=== PATIENT | female | born 1985 | race Caucasian/White ===

== ENCOUNTER 2016-07-06 00:48 | Emergency (ER) | payer OTHER ==
--- NOTE | 2016-07-06 02:03 | ED CLINICAL REPORT ---
Clinical Report - Physicians/Mid Levels [facility] [address] [place] [address] 07/06/2016 0:51 Patient: ROGER LISA Time Seen: 00:57. Arrived- By private vehicle. Historian- patient. HISTORY OF PRESENT ILLNESS Chief Complaint: EARACHE. This started about 9 days ago and is still present. It was gradual in onset and has been constant and waxing/waning. Location- right ear. The pain is described as severe. The patient has had moderate right ear pain (for several hours). She has had moderate nasal congestion (for 9 days). She has had sinus pressure (for 9 days). REVIEW OF SYSTEMS All systems otherwise negative, except as recorded above. PAST HISTORY Medications: None. Allergies: No Known Drug Allergy. SOCIAL HISTORY Light tobacco smoker (cigarette)- less than 1/2 a pack per day. Regular alcohol use; consumes two beers a day. History of weekly drug use: marijuana. FAMILY HISTORY No significant family medical history. ADDITIONAL NOTES The nursing notes have been reviewed. PHYSICAL EXAM Vital Signs: 07/06/2016 00:57 BP: 122/74. HR: 80. RR: 16. O2 saturation: 100%. Temp: 98.6 F. Have been reviewed. Appearance: Alert. Ear (left): Left ear normal. Left tympanic membrane normal. Throat: Pharynx normal. Ear (right): There is erythema and dullness of the tympanic membrane, fluid behind the tympanic membrane and loss of tympanic membrane landmarks. Nose: Tenderness present to percussion/palpation of the sinuses: mild right and left maxillary tenderness. Neck: Neck supple. CVS: Normal heart rate and rhythm. Heart sounds normal. Respiratory: No respiratory distress. Breath sounds normal. Abdomen: Soft and nontender. Back: Normal inspection. Skin: Skin warm and dry. Normal skin color. Normal skin turgor. Extremities: No lower extremity edema. PROGRESS AND PROCEDURES Course of Care: Patient is stable. Patient/family counseled. Old medical records ordered. Old records unavailable. Disposition: Discharged. Condition: stable. CLINICAL IMPRESSION Acute right otitis media. Acute maxillary sinusitis INSTRUCTIONS Do not smoke- benefits of smoking cessation discussed (>3 -10 minutes). Seek medical help to quit smoking. Warnings: GENERAL WARNINGS: Return or contact your physician immediately if your condition worsens or changes unexpectedly, if not improving as expected, or if other problems arise. Prescription Medications: Zithromax 250 mg tablets: take 2 orally today, followed by 1 daily for the next 4 days. No refills. Substitution is permissible. Understanding of the discharge instructions verbalized by patient. (Electronically signed by Ray Gomez MD 07/06/2016 2:16)
--- NOTE | 2016-07-06 02:03 | ED NURSING NOTES ---
Clinical Report - Nurses [facility] [address] [place] [address] 07/06/2016 0:51 Patient: ROGER LISA TRIAGE Triage time 0058. Acuity: LEVEL 3. Chief Complaint: RIGHT EAR PAIN and SINUS CONGESTION. --01:02 Pete Ibarra R.N. 00:57 07/06/16. BP: 122/74. HR: 80. RR: 16. O2 saturation: 100%. Temp: 98.6 F. Pain level now 01/20. --01:02 Pete Ibarra R.N. Weight: 57.6 kg stated. Height/Length: 66 inches Per Patient. BMI: 20.5. --00:58 Pete Ibarra R.N. Medications None. --01:00 Pete Ibarra R.N. Allergies No Known Drug Allergy. --01:00 Pete Ibarra R.N. History Arrived by private vehicle. Historian: patient. Accompanied by friend. Onset. (about 9 days). ( ear pain only the last 3 hours). She has had a sore throat. No ear drainage. 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 (viviana ear drops). SOCIAL HX: Light tobacco smoker- less than 1/2 a pack per day. Alcohol use; consumes two beers a day. History of weekly drug use: marijuana. FALL RISK ASSESSMENT: Fall risk assessment completed. No fall risk identified. NUTRITIONAL RISK ASSESSMENT: The nutritional risk assessment revealed no deficiencies. FUNCTIONAL ASSESSMENT: Functional assessment: no impairments noted. LEARNING NEEDS ASSESSMENT: The learning needs assessment revealed no barriers. SKIN INTEGRITY ASSESSMENT: Skin integrity risk assessment completed. No skin integrity risk identified. --01:02 Pete Ibarra R.N. PAST MEDICAL HX: ( pt states she feels she has had a cold this whole time and only came in because her ear started hurting). --01:03 Pete Ibarra R.N. Interventions ID band on patient. --01:02 Pete Ibarra R.N. PHYSICAL ASSESSMENT Ambulatory to room. GENERAL / NEURO / PSYCH: Alert. Appears in no acute distress. HEENT: No facial asymmetry noted. Pupils equal, round and reactive to light. EOM intact. Nares within normal limits. RESPIRATORY: Respirations not labored. CVS: Capillary refill less than 2 seconds. SKIN: Skin is warm and dry. --01:02 Pete Ibarra R.N. NURSING PROGRESS NOTES Patient gowned. Head of bed elevated. Reassurance given. Patient identifiers checked. Call light placed in reach. Bed placed in lowest position. Brakes of bed on. --01:03 Pete Ibarra R.N. DISPOSITION / DISCHARGE Departure time: 0. Condition at departure: improved. No learning barriers present. Discharge instructions provided and reviewed with accounting manager assistant controller and the patient. Reviewed warnings. Reviewed medication(s). Treatments reviewed. Reviewed referrals. Patient and accounting manager assistant controller verbalized understanding. Written instructions provided in German. The patient was discharged by the physician. She was discharged home and accompanied by accounting manager assistant controller. She left the Emergency Department ambulatory and via private vehicle. Sole Edge Inker Machine driving. --02:12 Pete Ibarra R.N. 02:10 07/06/16. BP: 110/75. HR: 66. RR: 16. O2 saturation: 100%. Temp: 98 F. Pain level now 0/10. --02:12 Pete Ibarra R.N. Locked/Released at 07/06/2016 2:12 by Pete Ibarra R.N.
--- NOTE | 2016-07-06 02:03 | ED NURSING NOTES ---
Clinical Report - Nurses [facility] [address] [place] [address] 07/06/2016 0:51 Patient: ROGER LISA TRIAGE Triage time 0058. Acuity: LEVEL 3. Chief Complaint: RIGHT EAR PAIN and SINUS CONGESTION. --01:02 Pete Ibarra R.N. 00:57 07/06/16. BP: 122/74. HR: 80. RR: 16. O2 saturation: 100%. Temp: 98.6 F. Pain level now 01/20. --01:02 Pete Ibarra R.N. Weight: 57.6 kg stated. Height/Length: 66 inches Per Patient. BMI: 20.5. --00:58 Pete Ibarra R.N. Medications None. --01:00 Pete Ibarra R.N. Allergies No Known Drug Allergy. --01:00 Pete Ibarra R.N. History Arrived by private vehicle. Historian: patient. Accompanied by friend. Onset. (about 9 days). ( ear pain only the last 3 hours). She has had a sore throat. No ear drainage. 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 (viviana ear drops). SOCIAL HX: Light tobacco smoker- less than 1/2 a pack per day. Alcohol use; consumes two beers a day. History of weekly drug use: marijuana. FALL RISK ASSESSMENT: Fall risk assessment completed. No fall risk identified. NUTRITIONAL RISK ASSESSMENT: The nutritional risk assessment revealed no deficiencies. FUNCTIONAL ASSESSMENT: Functional assessment: no impairments noted. LEARNING NEEDS ASSESSMENT: The learning needs assessment revealed no barriers. SKIN INTEGRITY ASSESSMENT: Skin integrity risk assessment completed. No skin integrity risk identified. --01:02 Pete Ibarra R.N. PAST MEDICAL HX: ( pt states she feels she has had a cold this whole time and only came in because her ear started hurting). --01:03 Pete Ibarra R.N. Interventions ID band on patient. --01:02 Pete Ibarra R.N. PHYSICAL ASSESSMENT Ambulatory to room. GENERAL / NEURO / PSYCH: Alert. Appears in no acute distress. HEENT: No facial asymmetry noted. Pupils equal, round and reactive to light. EOM intact. Nares within normal limits. RESPIRATORY: Respirations not labored. CVS: Capillary refill less than 2 seconds. SKIN: Skin is warm and dry. --01:02 Pete Ibarra R.N. NURSING PROGRESS NOTES Patient gowned. Head of bed elevated. Reassurance given. Patient identifiers checked. Call light placed in reach. Bed placed in lowest position. Brakes of bed on. --01:03 Pete Ibarra R.N. DISPOSITION / DISCHARGE Departure time: 0. Condition at departure: improved. No learning barriers present. Discharge instructions provided and reviewed with chief digital media officer and the patient. Reviewed warnings. Reviewed medication(s). Treatments reviewed. Reviewed referrals. Patient and chief digital media officer verbalized understanding. Written instructions provided in Bulgarian. The patient was discharged by the physician. She was discharged home and accompanied by chief digital media officer. She left the Emergency Department ambulatory and via private vehicle. Assistant Store Manager driving. --02:12 Pete Ibarra R.N. 02:10 07/06/16. BP: 110/75. HR: 66. RR: 16. O2 saturation: 100%. Temp: 98 F. Pain level now 0/10. --02:12 Pete Ibarra R.N. Locked/Released at 07/06/2016 2:12 by Pete Ibarra R.N.
--- NOTE | 2016-07-06 02:03 | ED CLINICAL REPORT ---
Clinical Report - Physicians/Mid Levels [facility] [address] [place] [address] 07/06/2016 0:51 Patient: ROGER LISA Time Seen: 00:57. Arrived- By private vehicle. Historian- patient. HISTORY OF PRESENT ILLNESS Chief Complaint: EARACHE. This started about 9 days ago and is still present. It was gradual in onset and has been constant and waxing/waning. Location- right ear. The pain is described as severe. The patient has had moderate right ear pain (for several hours). She has had moderate nasal congestion (for 9 days). She has had sinus pressure (for 9 days). REVIEW OF SYSTEMS All systems otherwise negative, except as recorded above. PAST HISTORY Medications: None. Allergies: No Known Drug Allergy. SOCIAL HISTORY Light tobacco smoker (cigarette)- less than 1/2 a pack per day. Regular alcohol use; consumes two beers a day. History of weekly drug use: marijuana. FAMILY HISTORY No significant family medical history. ADDITIONAL NOTES The nursing notes have been reviewed. PHYSICAL EXAM Vital Signs: 07/06/2016 00:57 BP: 122/74. HR: 80. RR: 16. O2 saturation: 100%. Temp: 98.6 F. Have been reviewed. Appearance: Alert. Ear (left): Left ear normal. Left tympanic membrane normal. Throat: Pharynx normal. Ear (right): There is erythema and dullness of the tympanic membrane, fluid behind the tympanic membrane and loss of tympanic membrane landmarks. Nose: Tenderness present to percussion/palpation of the sinuses: mild right and left maxillary tenderness. Neck: Neck supple. CVS: Normal heart rate and rhythm. Heart sounds normal. Respiratory: No respiratory distress. Breath sounds normal. Abdomen: Soft and nontender. Back: Normal inspection. Skin: Skin warm and dry. Normal skin color. Normal skin turgor. Extremities: No lower extremity edema. PROGRESS AND PROCEDURES Course of Care: Patient is stable. Patient/family counseled. Old medical records ordered. Old records unavailable. Disposition: Discharged. Condition: stable. CLINICAL IMPRESSION Acute right otitis media. Acute maxillary sinusitis INSTRUCTIONS Do not smoke- benefits of smoking cessation discussed (>3 -10 minutes). Seek medical help to quit smoking. Warnings: GENERAL WARNINGS: Return or contact your physician immediately if your condition worsens or changes unexpectedly, if not improving as expected, or if other problems arise. Prescription Medications: Zithromax 250 mg tablets: take 2 orally today, followed by 1 daily for the next 4 days. No refills. Substitution is permissible. Understanding of the discharge instructions verbalized by patient. (Electronically signed by Ray Gomez MD 07/06/2016 2:16)
--- NOTE | 2016-07-06 02:17 | ED MED RECONCILIATION SUMMARY ---
Patient: ROGER LISA Medication Reconciliation Report [facility] VisitID: [id number] [address] [place] [address] 31y, F Registration Date/Time: 07/06/2016 Weight: 57.6 kg Height/Length: 66 in. BMI: 20.5 ALLERGIES: No Known Drug Allergy The patient's Home Medications are listed below: NONE. The source(s) of the original Home Medication information: Not obtained. The following Medications were given to the patient in the Emergency Department: None. The following Medications were prescribed to the patient: Zithromax 250 mg tablets: take 2 orally today, followed by 1 daily for the next 4 days. No refills. Substitution is permissible. -- Ray Gomez MD
--- NOTE | 2016-07-06 02:17 | ED DISCHARGE INSTRUCTIONS ---
Patient: ROGER LISA General Instructions [facility] VisitID: [id number] [place] [address] 31y, F Registration Date/Time: 07/06/2016 Acute right otitis media. Acute maxillary sinusitis INSTRUCTIONS Do not smoke- benefits of smoking cessation discussed (>3 -10 minutes). Seek medical help to quit smoking. Warnings: GENERAL WARNINGS: Return or contact your physician immediately if your condition worsens or changes unexpectedly, if not improving as expected, or if other problems arise. Prescription Medications: Zithromax 250 mg tablets: take 2 orally today, followed by 1 daily for the next 4 days. No refills. Substitution is permissible. Understanding of the discharge instructions verbalized by patient. ADDITIONAL INFORMATION Middle Ear Infection (Adult) You have an infection of the middle ear (the space behind the eardrum). It can occur as a result of the common cold. This is because congestion can block the internal passage (eustachian tube) that drains fluid from the middle ear. When the middle ear fills with fluid, bacteria can grow there and cause an infection. Oral antibiotics are used to treat this illness, not ear drops. Symptoms usually start to improve within 1-2 days of treatment. Home Care: Finish all of the antibiotic medicine prescribed, even though you may feel better after the first few days. You may use acetaminophen (Tylenol) or ibuprofen (Motrin, Advil) to control pain, unless something else was prescribed. [NOTE: If you have chronic liver or kidney disease or have ever had a stomach ulcer or GI bleeding, talk with your doctor before using these medicines.] (Do not give aspirin to anyone under 18 years of age who is ill with a fever. It may cause severe liver damage.) Follow Up with your doctor or this facility in two weeks if all symptoms have not cleared, or if hearing does not return to normal within one month. Get Prompt Medical Attention if any of the following occur: Ear pain gets worse or does not improve after three days of treatment Unusual drowsiness or confusion Neck pain, stiff neck or headache Fluid or blood draining from the ear canal Fever of 100.4F (38C) or higher after 3 days of antibiotics, or as directed by your healthcare provider Convulsion (seizure) Sinusitis [Abx Tx] The sinuses are air-filled spaces within the bones of the face. They connect to the inside of the nose. Sinusitis is an inflammation of the tissue lining the sinus cavity. Sinus inflammation can occur during a cold or hay-fever (allergies to pollens and other particles in the air) and cause symptoms of sinus congestion and fullness. A sinus infection causes fever, headache and facial pain. There is usually green or yellow drainage from the nose or into the back of the throat (post-nasal drip). Antibiotics are prescribed to treat this condition. Home Care: Drink plenty of water, hot tea, and other liquids to stay well hydrated. This thins the mucus and promotes sinus drainage. Apply heat to the painful areas of the face. Use a towel soaked in hot water. Or, security installation sales technician the shower and direct the hot spray onto your face. This is a good way to inhale warm water vapor and get heat on your face at the same time. (Cover your mouth and nose with your hands so you can still breathe as you do this.) Use a vaporizer with products such as [employer] (contains menthol) at night. Suck on peppermint, menthol or eucalyptus hard candies during the day. An expectorant containing guaifenesin (such as Robitussin), helps to thin the mucus and promote drainage from the sinuses. Llvd-akt-elarelk decongestants may be used unless a similar medicine was prescribed. Nasal sprays work the fastest. Use one that contains phenylephrine (Evelio-synephrine, Sinex and others) or oxymetazoline (Afrin). First blow the nose gently to remove mucus, then apply the drops. Do not use these medicines more often than directed on the label or for more than three days or symptoms may worsen. You may also use tablets containing pseudoephedrine (Sudafed). Many sinus remedies combine ingredients, which may increase side effects. Read the labels or ask the pharmacist for help. NOTE: Persons with high blood pressure should not use decongestants. They can raise blood pressure. Antihistamines are useful if allergies are a cause of your sinusitis. The mildest one is chlorpheniramine (available without a prescription). The dose for adults is 8-12mg three times a day. [NOTE: Do not use chlorpheniramine if you have glaucoma or if you are a man with trouble urinating due to an enlarged prostate.] Claritin (loratidine) is an antihistamine that causes less drowsiness and is a good alternative for daytime use. Do not use nasal rinses or irrigation during an acute sinus infection, unless advised by your doctor. Rinsing may spread the infection to other sinuses. You may use acetaminophen (Tylenol) or ibuprofen (Motrin, Advil) to control pain, unless another pain medicine was prescribed. [ NOTE: If you have chronic liver or kidney disease or ever had a stomach ulcer, talk with your doctor before using these medicines.] (Aspirin should never be used in anyone under 18 years of age who is ill with a fever. It may cause severe liver damage.) Finish the full course, even if you are feeling better after a few days. Follow Up with your doctor or this facility in one week or as instructed by our staff if not improving. Get Prompt Medical Attention if any of the following occur: Facial pain or headache becomes more severe Stiff neck Unusual drowsiness or confusion, or not acting like your normal self Swelling of the forehead or eyelids Vision problems including blurred or double vision Fever of 100.4F (38C) or higher, or as directed by your healthcare provider Seizure How To Quit Smoking Smoking is one of the hardest habits to break. About half of all those who have ever smoked have been able to quit, and most of those (about 70%) who still smoke want to quit. Here are some of the best ways to stop smoking. Keep Trying: It takes most smokers about 8 tries before they are finally able to fully quit. So, the more often you try and fail, the better your chance of quitting the next time! So, don't give up! Go Cold [place]: Most ex-smokers quit cold turkey. Trying to cut back gradually doesn't seem to work as well, perhaps because it continues the smoking habit. Also, it is possible to fool yourself by inhaling more while smoking fewer cigarettes. This results in the same amount of nicotine in your body! Get Support: Support programs can make an important difference, especially for the heavy smoker. These groups offer lectures, methods to change your behavior and peer support. Call the free national Quitline for more information. 062-UUTR-HAU (056-476-3166). Low-cost or free programs are offered by many hospitals, local chapters of the [place] [employer] (277-709-0248) and the [place] [employer] (798-299-9342). Support at home is important too. Non-smokers can help by offering praise and encouragement. If the smoker fails to quit, encourage them to try again! Bcak-Ljs-Fxcpnsn Medicines: For those who can't quit on their own, Nicotine Replacement Therapy (NRT) may make quitting much easier. Certain aids such as the nicotine patch, gum and lozenge are available without a prescription. However, it is best to use these under the guidance of your doctor. The skin patch provides a steady supply of nicotine to the body. Nicotine gum and lozenge gives temporary bursts of low levels of nicotine. Both methods take the edge off the craving for cigarettes. WARNING: If you feel symptoms of nicotine overdose, such as nausea, vomiting, dizziness, weakness, or fast heartbeat, stop using these and see your doctor. Prescription Medicines: After evaluating your smoking patterns and prior attempts at quitting, your doctor may offer a prescription medicine such as bupropion (Zyban, Wellbutrin), varenicline (Chantix, Champix), a niocotine inhaler or nasal spray. Each has its unique advantage and side effects which your doctor can review with you. Health Benefits Of Quitting: The benefits of quitting start right away and keep improving the longer you go without smokin minutes: blood pressure and pulse return to normal 8 hours: oxygen levels return to normal 2 days: ability to smell and taste begins to improve as damaged nerves start to regrow 2-3 weeks: circulation and lung function improves 1-9 months: decreased cough, congestion and shortness of breath; less tired 1 year: risk of heart attack decreases by half 5 years: risk of lung cancer decreases by half; risk of stroke becomes the same as a non-smoker For information about how to quit smoking, visit the following links: National [employer] , Clearing the Air, Quit Smoking Today - an online booklet. http://www.smokefree.gov/pubs/clearing_the_air.pdf Smokefree.gov http://smokefree.gov/ QuitNet http://www.quitnet.com/ Azithromycin Oral tablet What is this medicine? AZITHROMYCIN (az ith miles MYE sin) is a macrolide antibiotic. It is used to treat or prevent certain kinds of bacterial infections. It will not work for colds, flu, or other viral infections. How should I use this medicine? Take this medicine by mouth with a full glass of water. Follow the directions on the prescription label. The tablets can be taken with food or on an empty stomach. If the medicine upsets your stomach, take it with food. Take your medicine at regular intervals. Do not take your medicine more often than directed. Take all of your medicine as directed even if you think your are better. Do not skip doses or stop your medicine early. Talk to your cork sorter regarding the use of this medicine in children. Special care may be needed. What side effects may I notice from receiving this medicine? Side effects that you should report to your doctor or health medicare sales representative as soon as possible: allergic reactions like skin rash, itching or hives, swelling of the face, lips, or tongue confusion, nightmares or hallucinations dark urine difficulty breathing hearing loss irregular heartbeat or chest pain pain or difficulty passing urine redness, blistering, peeling or loosening of the skin, including inside the mouth white patches or sores in the mouth yellowing of the eyes or skin Side effects that usually do not require medical attention (report to your doctor or health medicare sales representative if they continue or are bothersome): diarrhea dizziness, drowsiness headache stomach upset or vomiting tooth discoloration vaginal irritation What may interact with this medicine? Do not take this medicine with any of the following medications: lincomycin This medicine may also interact with the following medications: amiodarone antacids cyclosporine digoxin magnesium nelfinavir phenytoin warfarin What if I miss a dose? If you miss a dose, take it as soon as you can. If it is almost time for your next dose, take only that dose. Do not take double or extra doses. Where should I keep my medicine? Keep out of the reach of children. Store at room temperature between 15 and 30 degrees C (59 and 86 degrees F). Throw away any unused medicine after the expiration date. What should I tell my health care provider before I take this medicine? They need to know if you have any of these conditions: kidney disease liver disease irregular heartbeat or heart disease an unusual or allergic reaction to azithromycin, erythromycin, other macrolide antibiotics, foods, dyes, or preservatives or trying to get breast-feeding What should I watch for while using this medicine? Tell your doctor or health medicare sales representative if your symptoms do not improve. Do not treat diarrhea with over the counter products. Contact your doctor if you have diarrhea that lasts more than 2 days or if it is severe and watery. This medicine can make you more sensitive to the sun. Keep out of the sun. If you cannot avoid being in the sun, wear protective clothing and use sunscreen. Do not use sun lamps or tanning beds/booths. You have been given the following additional information: Otitis Media, Abx Tx (Adult) Sinusitis, Abx Tx Smoking Cessation Azithromycin Oral tablet (Electronically signed by Ray Gomez MD 07/06/2016 2:16)
--- NOTE | 2016-07-06 02:17 | ED MED RECONCILIATION SUMMARY ---
Patient: ROGER LISA Medication Reconciliation Report [facility] VisitID: [id number] [address] [place] [address] 31y, F Registration Date/Time: 07/06/2016 Weight: 57.6 kg Height/Length: 66 in. BMI: 20.5 ALLERGIES: No Known Drug Allergy The patient's Home Medications are listed below: NONE. The source(s) of the original Home Medication information: Not obtained. The following Medications were given to the patient in the Emergency Department: None. The following Medications were prescribed to the patient: Zithromax 250 mg tablets: take 2 orally today, followed by 1 daily for the next 4 days. No refills. Substitution is permissible. -- Ray Gomez MD
--- NOTE | 2016-07-06 02:17 | ED DISCHARGE INSTRUCTIONS ---
Patient: ROGER LISA General Instructions [facility] VisitID: [id number] [place] [address] 31y, F Registration Date/Time: 07/06/2016 Acute right otitis media. Acute maxillary sinusitis INSTRUCTIONS Do not smoke- benefits of smoking cessation discussed (>3 -10 minutes). Seek medical help to quit smoking. Warnings: GENERAL WARNINGS: Return or contact your physician immediately if your condition worsens or changes unexpectedly, if not improving as expected, or if other problems arise. Prescription Medications: Zithromax 250 mg tablets: take 2 orally today, followed by 1 daily for the next 4 days. No refills. Substitution is permissible. Understanding of the discharge instructions verbalized by patient. ADDITIONAL INFORMATION Middle Ear Infection (Adult) You have an infection of the middle ear (the space behind the eardrum). It can occur as a result of the common cold. This is because congestion can block the internal passage (eustachian tube) that drains fluid from the middle ear. When the middle ear fills with fluid, bacteria can grow there and cause an infection. Oral antibiotics are used to treat this illness, not ear drops. Symptoms usually start to improve within 1-2 days of treatment. Home Care: Finish all of the antibiotic medicine prescribed, even though you may feel better after the first few days. You may use acetaminophen (Tylenol) or ibuprofen (Motrin, Advil) to control pain, unless something else was prescribed. [NOTE: If you have chronic liver or kidney disease or have ever had a stomach ulcer or GI bleeding, talk with your doctor before using these medicines.] (Do not give aspirin to anyone under 18 years of age who is ill with a fever. It may cause severe liver damage.) Follow Up with your doctor or this facility in two weeks if all symptoms have not cleared, or if hearing does not return to normal within one month. Get Prompt Medical Attention if any of the following occur: Ear pain gets worse or does not improve after three days of treatment Unusual drowsiness or confusion Neck pain, stiff neck or headache Fluid or blood draining from the ear canal Fever of 100.4F (38C) or higher after 3 days of antibiotics, or as directed by your healthcare provider Convulsion (seizure) Sinusitis [Abx Tx] The sinuses are air-filled spaces within the bones of the face. They connect to the inside of the nose. Sinusitis is an inflammation of the tissue lining the sinus cavity. Sinus inflammation can occur during a cold or hay-fever (allergies to pollens and other particles in the air) and cause symptoms of sinus congestion and fullness. A sinus infection causes fever, headache and facial pain. There is usually green or yellow drainage from the nose or into the back of the throat (post-nasal drip). Antibiotics are prescribed to treat this condition. Home Care: Drink plenty of water, hot tea, and other liquids to stay well hydrated. This thins the mucus and promotes sinus drainage. Apply heat to the painful areas of the face. Use a towel soaked in hot water. Or, senior accounting manager the shower and direct the hot spray onto your face. This is a good way to inhale warm water vapor and get heat on your face at the same time. (Cover your mouth and nose with your hands so you can still breathe as you do this.) Use a vaporizer with products such as [employer] (contains menthol) at night. Suck on peppermint, menthol or eucalyptus hard candies during the day. An expectorant containing guaifenesin (such as Robitussin), helps to thin the mucus and promote drainage from the sinuses. Actg-bzj-pmglmbh decongestants may be used unless a similar medicine was prescribed. Nasal sprays work the fastest. Use one that contains phenylephrine (Evelio-synephrine, Sinex and others) or oxymetazoline (Afrin). First blow the nose gently to remove mucus, then apply the drops. Do not use these medicines more often than directed on the label or for more than three days or symptoms may worsen. You may also use tablets containing pseudoephedrine (Sudafed). Many sinus remedies combine ingredients, which may increase side effects. Read the labels or ask the pharmacist for help. NOTE: Persons with high blood pressure should not use decongestants. They can raise blood pressure. Antihistamines are useful if allergies are a cause of your sinusitis. The mildest one is chlorpheniramine (available without a prescription). The dose for adults is 8-12mg three times a day. [NOTE: Do not use chlorpheniramine if you have glaucoma or if you are a man with trouble urinating due to an enlarged prostate.] Claritin (loratidine) is an antihistamine that causes less drowsiness and is a good alternative for daytime use. Do not use nasal rinses or irrigation during an acute sinus infection, unless advised by your doctor. Rinsing may spread the infection to other sinuses. You may use acetaminophen (Tylenol) or ibuprofen (Motrin, Advil) to control pain, unless another pain medicine was prescribed. [ NOTE: If you have chronic liver or kidney disease or ever had a stomach ulcer, talk with your doctor before using these medicines.] (Aspirin should never be used in anyone under 18 years of age who is ill with a fever. It may cause severe liver damage.) Finish the full course, even if you are feeling better after a few days. Follow Up with your doctor or this facility in one week or as instructed by our staff if not improving. Get Prompt Medical Attention if any of the following occur: Facial pain or headache becomes more severe Stiff neck Unusual drowsiness or confusion, or not acting like your normal self Swelling of the forehead or eyelids Vision problems including blurred or double vision Fever of 100.4F (38C) or higher, or as directed by your healthcare provider Seizure How To Quit Smoking Smoking is one of the hardest habits to break. About half of all those who have ever smoked have been able to quit, and most of those (about 70%) who still smoke want to quit. Here are some of the best ways to stop smoking. Keep Trying: It takes most smokers about 8 tries before they are finally able to fully quit. So, the more often you try and fail, the better your chance of quitting the next time! So, don't give up! Go Cold Dafter: Most ex-smokers quit cold turkey. Trying to cut back gradually doesn't seem to work as well, perhaps because it continues the smoking habit. Also, it is possible to fool yourself by inhaling more while smoking fewer cigarettes. This results in the same amount of nicotine in your body! Get Support: Support programs can make an important difference, especially for the heavy smoker. These groups offer lectures, methods to change your behavior and peer support. Call the free national Quitline for more information. 757-LFPJ-QIU (062-572-8507). Low-cost or free programs are offered by many hospitals, local chapters of the [employer] [place] [employer] (687-449-3010) and the [employer] [place] [employer] (288-094-2066). Support at home is important too. Non-smokers can help by offering praise and encouragement. If the smoker fails to quit, encourage them to try again! Zjjn-Rdk-Cauglwb Medicines: For those who can't quit on their own, Nicotine Replacement Therapy (NRT) may make quitting much easier. Certain aids such as the nicotine patch, gum and lozenge are available without a prescription. However, it is best to use these under the guidance of your doctor. The skin patch provides a steady supply of nicotine to the body. Nicotine gum and lozenge gives temporary bursts of low levels of nicotine. Both methods take the edge off the craving for cigarettes. WARNING: If you feel symptoms of nicotine overdose, such as nausea, vomiting, dizziness, weakness, or fast heartbeat, stop using these and see your doctor. Prescription Medicines: After evaluating your smoking patterns and prior attempts at quitting, your doctor may offer a prescription medicine such as bupropion (Zyban, Wellbutrin), varenicline (Chantix, Champix), a niocotine inhaler or nasal spray. Each has its unique advantage and side effects which your doctor can review with you. Health Benefits Of Quitting: The benefits of quitting start right away and keep improving the longer you go without smokin minutes: blood pressure and pulse return to normal 8 hours: oxygen levels return to normal 2 days: ability to smell and taste begins to improve as damaged nerves start to regrow 2-3 weeks: circulation and lung function improves 1-9 months: decreased cough, congestion and shortness of breath; less tired 1 year: risk of heart attack decreases by half 5 years: risk of lung cancer decreases by half; risk of stroke becomes the same as a non-smoker For information about how to quit smoking, visit the following links: National Cancer [place] , Clearing the Air, Quit Smoking Today - an online booklet. http://www.smokefree.gov/pubs/clearing_the_air.pdf Smokefree.gov http://smokefree.gov/ QuitNet http://www.quitnet.com/ Azithromycin Oral tablet What is this medicine? AZITHROMYCIN (az ith miles MYE sin) is a macrolide antibiotic. It is used to treat or prevent certain kinds of bacterial infections. It will not work for colds, flu, or other viral infections. How should I use this medicine? Take this medicine by mouth with a full glass of water. Follow the directions on the prescription label. The tablets can be taken with food or on an empty stomach. If the medicine upsets your stomach, take it with food. Take your medicine at regular intervals. Do not take your medicine more often than directed. Take all of your medicine as directed even if you think your are better. Do not skip doses or stop your medicine early. Talk to your cabin man regarding the use of this medicine in children. Special care may be needed. What side effects may I notice from receiving this medicine? Side effects that you should report to your doctor or health care asst as soon as possible: allergic reactions like skin rash, itching or hives, swelling of the face, lips, or tongue confusion, nightmares or hallucinations dark urine difficulty breathing hearing loss irregular heartbeat or chest pain pain or difficulty passing urine redness, blistering, peeling or loosening of the skin, including inside the mouth white patches or sores in the mouth yellowing of the eyes or skin Side effects that usually do not require medical attention (report to your doctor or health care asst if they continue or are bothersome): diarrhea dizziness, drowsiness headache stomach upset or vomiting tooth discoloration vaginal irritation What may interact with this medicine? Do not take this medicine with any of the following medications: lincomycin This medicine may also interact with the following medications: amiodarone antacids cyclosporine digoxin magnesium nelfinavir phenytoin warfarin What if I miss a dose? If you miss a dose, take it as soon as you can. If it is almost time for your next dose, take only that dose. Do not take double or extra doses. Where should I keep my medicine? Keep out of the reach of children. Store at room temperature between 15 and 30 degrees C (59 and 86 degrees F). Throw away any unused medicine after the expiration date. What should I tell my health care provider before I take this medicine? They need to know if you have any of these conditions: kidney disease liver disease irregular heartbeat or heart disease an unusual or allergic reaction to azithromycin, erythromycin, other macrolide antibiotics, foods, dyes, or preservatives or trying to get breast-feeding What should I watch for while using this medicine? Tell your doctor or health care asst if your symptoms do not improve. Do not treat diarrhea with over the counter products. Contact your doctor if you have diarrhea that lasts more than 2 days or if it is severe and watery. This medicine can make you more sensitive to the sun. Keep out of the sun. If you cannot avoid being in the sun, wear protective clothing and use sunscreen. Do not use sun lamps or tanning beds/booths. You have been given the following additional information: Otitis Media, Abx Tx (Adult) Sinusitis, Abx Tx Smoking Cessation Azithromycin Oral tablet (Electronically signed by Ray Gomez MD 07/06/2016 2:16)
--- NOTE | 2016-07-06 02:17 | ED MAR SUMMARY ---
..... Medication Administration Record [facility] [address] [id number] Patient: ROGER LISA Visit ID: [id number] 31y, F Weight: 57.6 kg Height/Length: 66 in BMI: 20.5 ALLERGIES: No Known Drug Allergy
--- NOTE | 2016-07-06 02:17 | ED MAR SUMMARY ---
..... Medication Administration Record [facility] [address] [place], [place] [id number] Patient: ROGER LISA Visit ID: [id number] 31y, F Weight: 57.6 kg Height/Length: 66 in BMI: 20.5 ALLERGIES: No Known Drug Allergy
== END 2016-07-06 02:10 | disposition home or self-care (01) ==
LOC: ED SRH 00:48
DX: H66.91 Otitis media, unspecified, right ear (principal); J01.00 Acute maxillary sinusitis, unspecified; F17.210 Nicotine dependence, cigarettes, uncomplicated